=== PATIENT | male | born 1980 | race Two or more races ===

== ENCOUNTER 2019-12-04 16:25 | Emergency (ER) | payer SELFPAY ==
[~2019-12-04] VITALS: Ht 182.9 cm; Wt 90.7 kg
[2019-12-04 16:40] VITALS: BP 156/97
[2019-12-04] MEDS ORDERED: LIDOCAINE 1% HCL (LOCAL ANESTH.) INJ 20ML MDV ONE (18:02)
[2019-12-04] MEDS ORDERED: TETANUS-DIPTH-ACEL PERTUSSIS 0.5ML SYRG IM ONE (19:15)
[2019-12-04] MEDS ORDERED: LIDOCAINE 1% (LOCAL ANESTH.) PF 5ml SDV ID ONE (19:45)
== END 2019-12-04 19:34 | disposition home or self-care (01) ==
LOC: ER 16:25
DX: S01.81XA Laceration without foreign body of other part of head, initial encounter (principal); F17.210 Nicotine dependence, cigarettes, uncomplicated; F12.10 Cannabis abuse, uncomplicated; F15.10 Other stimulant abuse, uncomplicated; Z59.0 Homelessness; W01.0XXA Fall on same level from slipping, tripping and stumbling without subsequent striking against object, initial encounter; Y93.89 Activity, other specified; Y99.8 Other external cause status; Y92.89 Other specified places as the place of occurrence of the external cause
CPT/HCPCS: 12013; 70450; 90715; 99284; J2001